=== PATIENT | male | born 1995 | race Caucasian/White ===

== ENCOUNTER 2025-01-29 21:19 | Emergency (ER) | payer SELFPAY ==
[~2025-01-29] VITALS: Ht 172.7 cm; Wt 80.0 kg
[2025-01-29 21:23] VITALS: TEMP 37; O2SAT 100
[2025-01-29] MEDS: LIDOCAINE HCL 1% 20ML VIAL INFIL SCH (22:00)
[2025-01-29] MEDS: ACETAMINOPHEN 1000MG/100ML 100 ML IV SCH (22:12)
[2025-01-30] MEDS ORDERED: IBUP-1455 MT (00:56)
[2025-01-30 01:49] VITALS: BP 122/70; PULSE 81; RESP 16; O2SAT 98
== END 2025-01-30 02:03 | disposition home or self-care (01) ==
LOC: ER 21:19
DX: S01.511A Laceration without foreign body of lip, initial encounter (principal); R55 Syncope and collapse; V00.841A Fall from standing electric scooter, initial encounter; Y93.89 Activity, other specified; Y92.89 Other specified places as the place of occurrence of the external cause; Y99.8 Other external cause status
CPT/HCPCS: 99285; 70450; 96365; 96366; 70486; 12013; J2003; J0131